=== PATIENT | female | born 1970 | race Two or more races ===

== ENCOUNTER 2017-10-14 20:10 | Emergency (ER) | payer OTHER ==
[~2017-10-14] VITALS: Ht 152.4 cm; Wt 45.4 kg
[2017-10-14] MEDS ORDERED: TDAP [DIPH/PERTUSSIS/TET] 0.5 ML VIAL IM ONE ×2 (21:28→21:30)
== END 2017-10-14 21:44 | disposition home or self-care (01) ==
LOC: ER 20:16
DX: S01.512A Laceration without foreign body of oral cavity, initial encounter (principal); X58.XXXA Exposure to other specified factors, initial encounter; Y93.89 Activity, other specified; Y92.89 Other specified places as the place of occurrence of the external cause; Y99.8 Other external cause status
CPT/HCPCS: 90715; A6402; A6403